=== PATIENT | female | born 1960 | race African-American/Black ===

== ENCOUNTER 2019-04-20 14:56 | Outpatient (CLI) | payer MEDICARE ==
--- NOTE | 2019-04-20 15:29 | RAD ---
Right ankle 3 views HISTORY: Ankle injury. COMPARISON: 08/06/2010. FINDINGS: Ankle mortise and talar dome are intact. Moderate osteophytosis. Joint space is preserved. More prominent degenerative changes throughout the hindfoot and midfoot. Pes planus. Soft tissue swelling over the lateral malleolus. No acute fracture, dislocation, or aggressive osseous erosions. IMPRESSION: Osseous degenerative changes. No acute osseous abnormalities are demonstrated.
== END 2019-04-20 14:57 | disposition home or self-care (01) ==
LOC: NAV RAD 14:56
PROVIDERS: ATTEND Nurse Practitioner Family
DX: M25.571 Pain in right ankle and joints of right foot (principal); M19.071 Primary osteoarthritis, right ankle and foot

== ENCOUNTER 2021-01-29 20:23 | Emergency (ER) | payer MEDICARE ==
[2021-01-29] MEDS ORDERED: predniSONE 20 MG TAB ONE (20:55)
== END 2021-01-29 21:05 | disposition home or self-care (01) ==
LOC: NAV ERS 20:23
DX: M54.31 Sciatica, right side (principal)
CPT/HCPCS: 99283; J7512

== ENCOUNTER 2021-05-22 09:30 | Emergency (ER) | payer MEDICARE ==
[2021-05-22] MEDS ORDERED: Acetaminophen/Codeine 30-300mg Tablet ONE (10:00)
[2021-05-22] MEDS ORDERED: Ketorolac Tromethamine 60 MG/2 ML VIAL ONE (10:01)
[2021-05-22] MEDS ORDERED: Cyclobenzaprine 10 MG TAB ONE (10:01)
== END 2021-05-22 11:00 | disposition home or self-care (01) ==
LOC: NAV ERS 09:30
DX: M54.50 Low back pain, unspecified (principal); G89.29 Other chronic pain; Z79.82 Long term (current) use of aspirin; Z79.899 Other long term (current) drug therapy
CPT/HCPCS: 96372; 99283; J1885

== ENCOUNTER 2021-05-28 19:13 | Emergency (ER) | payer MEDICARE ==
[2021-05-28] MEDS ORDERED: Cyclobenzaprine 10 MG TAB ONE (19:47)
[2021-05-28] MEDS ORDERED: Acetaminophen/Codeine 30-300mg Tablet ONE (19:47)
[2021-05-28] MEDS ORDERED: Ketorolac Tromethamine 60 MG/2 ML VIAL ONE (19:48)
== END 2021-05-28 20:48 | disposition home or self-care (01) ==
LOC: NAV ERS 19:13
DX: M54.42 Lumbago with sciatica, left side (principal); M54.16 Radiculopathy, lumbar region; Z79.82 Long term (current) use of aspirin; Z79.899 Other long term (current) drug therapy
CPT/HCPCS: 96372; 99283; J1885

== ENCOUNTER 2021-06-30 12:54 | Emergency (ER) | payer MEDICARE | END 2021-06-30 13:41 | disposition home or self-care (01) | LOC: NAV ERS 12:54 | DX: S83.91XA Sprain of unspecified site of right knee, initial encounter (principal); X50.1XXA Overexertion from prolonged static or awkward postures, initial encounter; Y93.01 Activity, walking, marching and hiking; Z79.899 Other long term (current) drug therapy | CPT/HCPCS: 99283 ==

== ENCOUNTER 2021-07-20 16:32 | Outpatient (CLI) | payer MEDICARE | END 2021-07-20 16:33 | disposition home or self-care (01) | LOC: NAV RAD 16:32 | PROVIDERS: ATTEND Family Medicine | DX: M17.0 Bilateral primary osteoarthritis of knee (principal); M22.2X2 Patellofemoral disorders, left knee ==

== ENCOUNTER 2023-10-02 19:22 | Emergency (ER) | payer MEDICARE ==
[2023-10-02 20:25] LABS: Bilirubin Negative (Negative); Blood, Urine Moderate (Negative); Glucose, Urine (Dipstick) Negative (Negative); Ketone, Urine Negative (Negative); Leukocyte Small (Negative); Nitrite Positive (Negative); Protein, Urine (Dipstick) Negative (Neg-Trace); Urobilinogen 0.2 mg/dL (Less than 2)
[2023-10-02] MEDS ORDERED: Pantoprazole 40 MG VIAL ONE (20:25)
[2023-10-02] MEDS ORDERED: Ondansetron PF 4 MG/2 ML Vial ONE (20:25)
[2023-10-02 20:29] LABS: Clarity Hazy (Clear)
[2023-10-02 20:32] LABS: Bacteria/HPF 4+ HPF (None Seen); CAUTI Indications for Culture Spinal Cord Injury; Squamous Epithelial 0-3 HPF (0-3)
[2023-10-02 20:33] LABS: Urine Culture Reflex No No
[2023-10-02 20:50] LABS: #Basophils 0.1 thou/uL (0.0-0.2); #Lymphocytes 1.2 thou/uL (1.20-3.40); #Monocytes 0.3 thou/uL (0.11-0.59); #Neutrophils 8.8 thou/uL (1.40-6.50); %Basophils 0.7 % (0.0-1.0); %Eosinophils 0.2 % (0.0-10.0); %Lymphocytes 11.3 % (21.0-51.0); %Neutrophils 84.7 % (42.0-75.0); Hematocrit 43.6 % (36.0-47.0); Hemoglobin 12.8 g/dL (12.0-16.0); Mean Corpuscular HGB CONC 29.4 g/dL (32.0-36.0); Mean Corpuscular Hemoglobin 24.8 pg (27.0-31.0); Mean Corpuscular Volume 84.4 fl (78.0-98.0); Mean Platelet Volume 5.5 fL (7.4-10.4); Platelet Count 360 10x3/uL (130-400); RBC Distribution Width 15.4 % (11.5-14.5); Red Blood Cell (RBC) Count 5.16 mill/uL (4.20-5.40); White Blood Cell (WBC) Count 10.4 10x3/uL (4.8-10.8)
[2023-10-02 20:53] LABS: ALT (SGPT) 22 U/L (8-55); AST (SGOT) 20 U/L (5-34); Albumin 3.3 g/dL (3.5-5.0); Alkaline Phosphatase 111 U/L (40-110); Anion Gap 13 mmol/L (10-20); BUN (Urea Nitrogen) 14 mg/dL (9.8-20.1); Bilirubin, Total 0.3 mg/dL (0.2-1.2); Calc. Creatinine Clearance 0 mL/min (70-130); Carbon Dioxide 27 mmol/L (22-29); Chloride 102 mmol/L (98-107); Estimated GFR 93; Globulin 4.1 g/dL (2.4-3.5); Glucose 126 mg/dL (70-105); Potassium 3.8 mmol/L (3.5-5.1); Protein, Total 7.4 g/dL (6.0-8.3); Sodium 138 mmol/L (136-145)
[2023-10-02] MEDS ORDERED: Cephalexin 250 MG CAP ONE (21:03)
[2023-10-02 21:31] LABS: SARS-CoV-2 E Target Negative; SARS-CoV-2 N2 Target Negative; SARS-CoV-2 NAA Rapid Test Not Detected (NotDetected); SARS-CoV-2 RdRP gene Negative
[2023-10-02] MEDS ORDERED: Acetaminophen 500 MG TAB ONE (21:51)
[2023-10-02] MEDS ORDERED: Ketorolac Tromethamine 30 MG (1 mL) VIAL ONE (22:14)
[2023-10-02] MEDS ORDERED: traMADol HCl 50 MG TAB ONE (22:14)
== END 2023-10-02 22:54 | disposition home or self-care (01) ==
LOC: NAV ERS 19:22
DX: A08.4 Viral intestinal infection, unspecified (principal); E86.0 Dehydration; N39.0 Urinary tract infection, site not specified; R03.0 Elevated blood-pressure reading, without diagnosis of hypertension; G89.29 Other chronic pain; M25.50 Pain in unspecified joint
CPT/HCPCS: 71046; 80053; 81001; 85025; 87086; 87804 ×2; C9113; J1885; J2405; U0002; 96361; 96374; 96375